=== PATIENT | female | born 1980 | race Caucasian/White ===

== ENCOUNTER 2020-06-29 13:42 | Outpatient (CLI) | payer OTHER ==
--- NOTE | 2020-06-29 16:09 | MRI Report ---
PROCEDURE: Cervical Spine W/O INDICATIONS: RADICULOPATHY, CERVICAL TECHNIQUE: Noncontrast sagittal T1 spin echo and T2 fast spin echo, sagittal STIR, foraminal oblique sagittal T2 fast spin echo, and axial gradient echo or T2 fast spin echo through the cervical spine. COMPARISON: None. FINDINGS: Image quality: Excellent. Alignment and Curvature: There is loss of normal cervical lordosis. There is mild kyphosis at C3-C5. . Bone Marrow: Marrow demonstrates normal overall signal. Spinal Cord: Visualized spinal cord has normal size and signal. No cerebellar tonsillar herniation. Paraspinous Soft Tissues: No paravertebral masses. Prevertebral soft tissues are normal in thicknes s. C2-C3: Mild disc desiccation. No significant canal, nor foraminal stenosis. C3-C4: Moderate disc desiccation. Mild diffuse disc bulge. No significant foraminal stenosis. Minim al canal stenosis C4-C5: Mild disc height loss and desiccation. Mild diffuse disc bulge. Mild canal stenosis. No mavis inal stenosis. C5-C6: Minimal diffuse disc bulge. No significant canal, nor foraminal stenosis. C6-C7: Mild disc desiccation and diffuse disc bulge. Mild canal stenosis. No foraminal stenosis. C7-T1: Normal in appearance. IMPRESSION: 1. Multilevel degenerative disc and facet disease, causing mild multilevel canal and foraminal stenos es. No neural impingement. 2. Mild mid/lower cervical kyphosis. Reviewed by: Rosa Tovar MD on 06/29/2020 4:07 PM PDT Approved by: Rosa Tovar MD on 06/29/2020 4:07 PM PDT Station ID: [id number]
== END 2020-06-29 13:43 | disposition home or self-care (01) ==
LOC: DI 13:42
PROVIDERS: ATTEND Family Medicine
DX: M47.812 Spondylosis without myelopathy or radiculopathy, cervical region (principal); M50.31 Other cervical disc degeneration, high cervical region; M48.02 Spinal stenosis, cervical region
CPT/HCPCS: 72141

== ENCOUNTER 2021-01-13 09:05 | Emergency (ER) | payer OTHER ==
--- OUTSIDE RECORDS SUMMARY | 2021-01-13 09:09 | EXTERNAL MEDICAL SUMMARY RPT | Continuity of Care Document ---
:1980 Demographics Phone Unavailable Preferred Language Cape Verdean Marital Status Unknown Yazidism Affiliation Unknown Race Unknown Ethnic Group Unknown Author Organization [place] Address [address] [phone] Phone Care Team Providers Name Role Phone Castillo Unavailable Unavailable Problems date description facility 20201221 Insomnia, unspecified [facility] 20201221 Personal history of other specified con ditions [facility] 20201221 Sleep apnea, unspecified [facility] Procedures date description facility 20201127 [facility] date description facility [id number] [facility] date description facility 20201228 [facility] Vital Signs date measurement value source 20201127 BMI 23.3 kg/m2 20201127 BP_diastolic 73 mm[Hg] 20201127 BP_systolic 111 mm[Hg] 20201127 heart_rate 86 /min 20201127 height_metric 160.02 cm 20201127 height_standard 63 in 20201127 respiration_rate 16 /min 20201127 temperature_metric 36.56 C 20201127 temperature_standard 97.8 F 20201127 weight_metric 59.87 kg 20201127 weight_standard 131.99 lb Social History date description facility [id number]
--- OUTSIDE RECORDS SUMMARY | 2021-01-13 09:12 | EXTERNAL MEDICAL SUMMARY RPT | Continuity of Care Document ---
:1980 Demographics Phone Unavailable Preferred Language Malawian Marital Status Unknown Episcopalian Affiliation Unknown Race Unknown Ethnic Group Unknown Author Organization [place] Address [address] [phone] Phone Care Team Providers Name Role Phone Castillo Unavailable Unavailable Problems date description facility 20201221 Insomnia, unspecified [facility] 20201221 Personal history of other specified con ditions [facility] 20201221 Sleep apnea, unspecified [facility] Procedures date description facility 20201127 [facility] date description facility 20201221 [facility] date description facility 20201228 [facility] Vital Signs date measurement value source 20201127 BMI 23.3 kg/m2 20201127 BP_diastolic 73 mm[Hg] 20201127 BP_systolic 111 mm[Hg] 20201127 heart_rate 86 /min 20201127 height_metric 160.02 cm 20201127 height_standard 63 in 20201127 respiration_rate 16 /min 20201127 temperature_metric 36.56 C 20201127 temperature_standard 97.8 F 20201127 weight_metric 59.87 kg 20201127 weight_standard 131.99 lb Social History date description facility [id number]
[2021-01-13 09:38] LABS: BASOPHILS % (AUTO) 0.7 %; EOSINOPHILS # (AUTO) 0.1 10^3/uL (0.0-0.7); HCT - HEMATOCRIT 43.4 % (37.0-47.0); HGB - HEMOGLOBIN 14.1 g/dL (12.0-16.0); LYMPHOCYTES # (AUTO) 2.3 10^3/uL (1.5-3.5); LYMPHOCYTES % (AUTO) 40.7 %; MEAN CORPUSCULAR HEMOGLOBIN 28.8 pg (27.0-31.0); MEAN CORPUSCULAR HGB CONC 32.5 g/dL (32.0-36.0); MEAN CORPUSCULAR VOLUME 88.8 fL (81.0-99.0); MEAN PLATELET VOLUME 9.3 fL (7.9-10.8); MONOCYTES # (AUTO) 0.4 10^3/uL (0.0-1.0); MONOCYTES % (AUTO) 6.5 %; NEUTROPHILS # (AUTO) 2.8 10^3/uL (1.5-6.6); NEUTROPHILS % (AUTO) 49.7 %; PLT - PLATELET COUNT 381 10^3/uL (130-450); RED BLOOD COUNT 4.89 10^6/uL (4.20-5.40); RED CELL DISTRIBUTION WIDTH 12.8 % (12.0-15.0); WHITE BLOOD COUNT 5.5 x10^3/uL (4.8-10.8)
[2021-01-13 09:50] LABS: ALBUMIN 4.7 g/dL (3.2-5.5); ALBUMIN/GLOBULIN RATIO 1.2 (1.0-2.2); CALCIUM 9.6 mg/dL (8.5-10.3); CREATININE 0.8 mg/dL (0.4-1.0); POTASSIUM 3.7 mmol/L (3.5-5.0); TOTAL PROTEIN 8.5 g/dL (6.7-8.2)
--- NOTE | 2021-01-13 09:51 | XRAY Report ---
PROCEDURE: Chest 1 View X-Ray INDICATIONS: Chest pain TECHNIQUE: One view of the chest was acquired. COMPARISON: None FINDINGS: Surgical changes and devices: Overlying EKG wires.. Lungs and pleura: No pleural effusions or pneumothorax. Lungs are clear. Mediastinum: Mediastinal contours appear normal. Heart size is normal. Bones and chest wall: No suspicious bony lesions. Overlying soft tissues appear unremarkable. IMPRESSION: No evidence of an acute cardiopulmonary abnormality. Reviewed by: Satnam Whitten DO on 01/13/2021 8:50 AM HERIBERTO Approved by: Satnam Whitten DO on 01/13/2021 8:50 AM HERIBERTO Station ID: [id number]
--- NOTE | 2021-01-13 10:00 | ED Physician Documentation ---
PD HPI CHEST PAIN - Stated complaint Stated Complaint: CHEST PX/RACING HEART - Chief complaint Chief Complaint: Cardiac - History obtained from History obtained from: Patient - History of Present Illness Timing - onset: Last night Timing - onset during: Rest Timing - duration: Hours Timing - details: Gradual onset, Now resolved, Waxing and waning Quality: Tightness Location: Substernal Radiation: No: Jaw, Neck, Back, Abdominal, Left upper extremity, Right upper extremity Improved by: Antacids Associated symptoms: Feeling faint / dizzy, Palpitations, Cough. No: Shortness of air, Diaphoresis, Nausea, Vomiting Similar symptoms before: Has not had sx before Recently seen: Clinic - Additional information Additional information: 40-year-old female has developed some pain in left side of her face and is being treated for sinusitis. She has been on some Augmentin and despite being on the Augmentin her symptoms have progressed or worsened. Last night she is complaining of some pain in her central chest she took some Pepto-Bismol which she felt might of helped a little bit. She is complaining of persistent pain in her face and she is worried about some numbness there as well she is not able to describe the symptoms more specifically. She does have a slight cough she has not had a fever. She has felt her heart racing from 120 down to 40. She does have some anxiety as her is deploying again tomorrow Review of Systems Constitutional: reports: Fatigue. denies: Fever Eyes: denies: Decreased vision Ears: reports: Ear pain Nose: reports: Rhinorrhea / runny nose, Congestion, Sinus pressure / pain Throat: reports: Sore throat Cardiac: reports: Chest pain / pressure, Palpitations Respiratory: reports: Cough. denies: Dyspnea GI: denies: Vomiting PD PAST MEDICAL HISTORY - Past Medical History Past Medical History: Yes Cardiovascular: Other Respiratory: None Neuro: None HEENT: None - Present Medications Home Medications: Ambulatory Orders Medication Instructions Recorded Confirmed Doxycycline Hyclate 100 mg PO BID #20 tab 01/13/21 - Allergies Allergies/Adverse Reactions: Allergies Allergy/AdvReac Type Severity Reaction Status Date / Time Sulfa (Sulfonamide AdvReac Unknown Verified 01/13/21 09:26 Antibiotics) - Social History Does the pt smoke?: No Smoking Status: Never smoker PD ED PE NORMAL - Vitals Vital signs reviewed: Yes (tachy and hypertensive ) - General General: Alert and oriented X 3, No acute distress, Well developed/nourished - HEENT HEENT: Atraumatic, PERRL, EOMI, Ears normal, Moist mucous membranes, Pharynx benign, Dentition benign - Neck Neck: Supple, no meningeal sign, No bony TTP - Cardiac Cardiac: RRR, No murmur - Respiratory Respiratory: No respiratory distress, Clear bilaterally - Abdomen Abdomen: Soft, Non tender, Non distended, No organomegaly - Back Back: No CVA TTP, No spinal TTP - Derm Derm: Normal color, Warm and dry, No rash - Extremities Extremities: No deformity, No tenderness to palpate, No edema, No calf tenderness / cord - Neuro Neuro: Alert and oriented X 3, 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, No motor deficit, No sensory deficit, Normal speech Eye Opening: Spontaneous Motor: Obeys Commands Verbal: Oriented GCS Score: 15 - Psych Psych: Normal mood, Normal affect Results - Vitals Vitals: Vital Signs - 24 hr 01/13/21 01/13/21 01/13/21 09:07 09:54 10:24 Temperature 36.9 C Heart Rate 119 H 95 85 Respiratory 16 15 14 Rate Blood Pressure 152/96 H 123/80 118/73 O2 Saturation 100 98 100 01/13/21 01/13/21 01/13/21 10:30 11:02 11:32 Temperature Heart Rate 88 88 88 Respiratory 14 16 15 Rate Blood Pressure 111/72 109/62 109/72 O2 Saturation 100 98 99 01/13/21 12:00 Temperature 36.8 C Heart Rate 80 Respiratory 14 Rate Blood Pressure 109/73 O2 Saturation 99 Oxygen O2 Source Room air - EKG (time done) 0910 Rate: Rate (enter#) (108) Rhythm: Sinus tachycardia, SKYLER QRS: Low voltage Ischemia: ST depression (inferior ) Compare to prior EKG: Old EKG unavailable Computer interpretation: Agree with computer - Labs Labs: Laboratory Tests 01/13/21 01/13/21 01/13/21 09:17 09:17 09:17 WBC 5.5 RBC 4.89 Hgb 14.1 Hct 43.4 MCV 88.8 MCH 28.8 MCHC 32.5 RDW 12.8 Plt Count 381 MPV 9.3 Neut # (Auto) 2.8 Lymph # (Auto) 2.3 Crawford # (Auto) 0.4 Eos # (Auto) 0.1 Baso # (Auto) 0.0 Absolute Nucleated RBC 0.00 Nucleated RBC % 0.0 D-Dimer Sodium 134 L Potassium 3.7 Chloride 101 Carbon Dioxide 23 Anion Gap 10.0 BUN 11 Creatinine 0.8 Estimated GFR (MDRD) 79 L Glucose 87 Calcium 9.6 Total Bilirubin 1.0 AST 25 ALT 17 Alkaline Phosphatase 64 Troponin I High Sens 2.5 Total Protein 8.5 H Albumin 4.7 Globulin 3.8 Albumin/Globulin Ratio 1.2 Lipase 43 01/13/21 09:17 WBC RBC Hgb Hct MCV MCH MCHC RDW Plt Count MPV Neut # (Auto) Lymph # (Auto) Crawford # (Auto) Eos # (Auto) Baso # (Auto) Absolute Nucleated RBC Nucleated RBC % D-Dimer 203.7 Sodium Potassium Chloride Carbon Dioxide Anion Gap BUN Creatinine Estimated GFR (MDRD) Glucose Calcium Total Bilirubin AST ALT Alkaline Phosphatase Troponin I High Sens Total Protein Albumin Globulin Albumin/Globulin Ratio Lipase - Rads (name of study) chest Radiology: Prelim report reviewed (Impression: No evidence of an acute cardiopulmonary abnormality.), EMP read indepedently, See rad report CT head Radiology: Prelim report reviewed (Impression: No acute intracranial abnormality. Minimal mucosal thickening of the partially captured left maxillary sinus.), EMP read indepedently, See rad report Procedures - IVC sono (time) 0950 Bedside IVC sono: IVC measures (cm) (1.96), High CVP PD MEDICAL DECISION MAKING - ED course Complexity details: considered differential, d/w patient ED course: Female presents to the emergency department tachycardic and with a pressure to the left side of her face and a headache. Her headache has persisted despite being on treatment for sinusitis. She was not dehydrated on interrogation of the inferior vena cava and I turned my attention to the possibility of pulmonary embolism as cause for her chest pain and tachycardia and found her D-dimer was negative. By history I suspect her chest pain is due to reflux and possibly related to the antibiotic she is on. She does not appear to be improving with the Augmentin. We did end up doing CT scan of the patient's head with concerns of atypical presentation of headache and this did show a portion of the patient's left maxillary sinus inflamed and we are treating her for sinusitis. We have given her a dose of dexamethasone and we will change her antibiotic to doxycycline. Departure - Departure Disposition: 01 Home, Self Care Clinical Impression: Sinusitis Qualifiers: Sinusitis location: maxillary Chronicity: acute Recurrence: not specified as recurrent Qualified Code(s): J01.00 - Acute maxillary sinusitis, unspecified Condition: Stable Instructions: ED Sinusitis Abx Tx Follow-Up: [facility] [Provider Group] Prescriptions: Doxycycline Hyclate 100 mg PO BID #20 tab Discharge Date/Time: 01/13/21 12:19
[2021-01-13] MEDS ORDERED: ACETAMINOPHEN 325 MG TABLET PO STA (11:10)
--- NOTE | 2021-01-13 11:16 | CT Report ---
PROCEDURE: HEAD WO INDICATIONS: persistent headache L facial pain TECHNIQUE: Noncontrast 4.5 mm thick angled axial sections acquired from the foramen magnum to the vertex. For r adiation dose reduction, the following was used: automated exposure control, adjustment of mA and/or kV according to patient size. COMPARISON: None. FINDINGS: Image quality: Beam hardening and streak artifact at the skull base greater than vertex somewhat limi ts evaluation.. CSF spaces: Basal cisterns are patent. No extra-axial fluid collections. Ventricles are normal in size and shape. Brain: No midline shift. No intracranial masses or hemorrhage. Bowens-white matter interface is norm al. Skull and face: Calvarium and visualized facial bones are intact, without suspicious lesions. Sinuses: Minimal mucosal thickening in the partially captured left maxillary sinus. Paranasal sinuses are otherwise clear. Mastoid air cells are clear. IMPRESSION: No acute intracranial abnormality. Minimal mucosal thickening of the partially captured left maxillary sinus. Reviewed by: Satnam Whitten DO on 01/13/2021 10:15 AM HERIBERTO Approved by: Satnam Whitten DO on 01/13/2021 10:15 AM HERIBERTO Station ID: [id number]
[2021-01-13] MEDS ORDERED: DEXAMETHASONE 10 MG/ML VIAL IVP STA (11:26)
[2021-01-13 12:09] VITALS: BP 109/73
== END 2021-01-13 12:19 | disposition home or self-care (01) ==
LOC: ED 09:05
DX: J01.00 Acute maxillary sinusitis, unspecified (principal); R00.0 Tachycardia, unspecified
CPT/HCPCS: 36415; 70450; 71045; 80053; 83690; 84484; 85025; 85379; 93005; 96374; 99284; A9270

== ENCOUNTER 2021-03-08 09:48 | Outpatient (CLI) | payer OTHER ==
--- NOTE | 2021-03-11 11:43 | Mammography Report ---
BILATERAL DIGITAL SCREENING MAMMOGRAM 3D/2D: 03/08/2021 CLINICAL: Baseline exam. Routine screening. No prior exams were available for comparison. The tissue of both breasts is heterogeneously dense. T his may lower the sensitivity of mammography. No significant masses, calcifications, or other findings are seen in either breast. IMPRESSION: NEGATIVE There is no mammographic evidence of malignancy. A 1 year screening mammogram is recommended. This exam was interpreted at Station ID: [id number]. NOTE: For mammograms, a report in lay terms will be sent to the patient. Approximately 15% of breast malignancies will not be visualized mammographically. In the management of a palpable breast mass, a negative mammogram must not discourage biopsy of a clinically suspicious lesion. Electronically Signed By: Andry Walsh acr/penrad:03/08/2021 11:27:58 ACR BI-RADS Category 1: Negative 3341F PARENCHYMAL PATTERN: (D) - The breast(s) demonstrate(s) heterogeneously dense fibroglandular [place] ma. BI-RADS CATEGORY: (1) - 1 RECOMMENDATION: (ANNUAL) - Recommend routine annual screening mammography. [id number] 1 year screening LATERALITY: (B)
== END 2021-03-08 09:49 | disposition home or self-care (01) ==
LOC: DI 09:48
DX: Z12.31 Encounter for screening mammogram for malignant neoplasm of breast (principal)